=== PATIENT | male | born 1965 ===

== ENCOUNTER 2017-09-05 04:15 | Observation (INO) | payer OTHER ==
[~2017-09-05] VITALS: Ht 182.9 cm; Wt 93.9 kg
[2017-09-05] VITALS (14 sets, daily range): BP systolic 127–146; BP diastolic 76–96
[~2017-09-05 04:15] MED LIST: CYCL10TA29 PO; IBUP400T13 PO
[2017-09-05] MEDS ORDERED: NORMOSOL R SOLN(*) 1000 ML BAG 1,000 ML IV PRN (06:15)
[2017-09-05] MEDS ORDERED: LIDOCAINE/SOD BICARB 8.4% SYR ID ONE (06:15)
[2017-09-05] MEDS ORDERED: CLINDAMYCIN(*) 900 MG/NS 50 ML 50 ML IVPB ONE (06:15)
[2017-09-05] MEDS ORDERED: FAMOTIDINE 20 MG TAB PO ONE (06:15)
[2017-09-05] MEDS ORDERED: MIDAZOLAM 2 MG/2 ML VIAL IVP PRN (06:15)
[2017-09-05] MEDS ORDERED: THROMBIN (BOVINE) 20,000 UNIT VIAL ONE (06:20)
[2017-09-05] MEDS ORDERED: fentaNYL CITR 250 MCG/5 ML AMP ONE (07:20)
[2017-09-05] MEDS ORDERED: DEXAMETHASONE SOD PHOS 10MG/ML ONE (09:12)
[2017-09-05] MEDS ORDERED: ONDANSETRON 4 MG/2 ML VIAL ONE (09:12)
[2017-09-05] MEDS ORDERED: LIDOCAINE MPF 1% 5 ML VIAL ONE (09:12)
[2017-09-05] MEDS ORDERED: SUCCINYLCHOL CHL 200MG/10ML VL ONE (09:12)
[2017-09-05] MEDS ORDERED: PROPOFOL EMUL 10 MG/ML ONE (09:12)
[2017-09-05] MEDS ORDERED: fentaNYL CITR 100 MCG/2 ML AMP ONE ×2 (10:33→10:58)
[2017-09-05] MEDS ORDERED: FLUSH 10 ML SYR IVP PRN (10:55)
[2017-09-05] MEDS ORDERED: DIAZEPAM 5 MG TAB PO PRN (10:55)
[2017-09-05] MEDS ORDERED: ACETAMINOPHEN(*)1000 MG/100 ML 100 ML IVPB PRN (10:55)
[2017-09-05] MEDS ORDERED: HYDROmorphone HCL 2 MG/ML SDV IVP PRN (10:55)
[2017-09-05] MEDS ORDERED: ONDANSETRON 4 MG/2 ML VIAL IVP PRN (10:55)
[2017-09-05] MEDS ORDERED: diphenhydrAMINE 25 MG CAP PO PRN (10:55)
[2017-09-05] MEDS ORDERED: LR(*) 1000 ML BAG 1,000 ML IV PRN (10:55)
[2017-09-05] MEDS ORDERED: oxyCODONE HCL 5 MG CAP PO PRN (10:55)
[2017-09-05] MEDS ORDERED: MAGNESIUM HYDROXIDE* 30ML UDCP PO PRN (10:55)
[2017-09-05] MEDS ORDERED: BENZOCAINE/MENTHOL 1 EACH LOZG PO PRN (10:55)
[2017-09-05] MEDS ORDERED: BISACODYL 10 MG SUPP PR PRN (10:55)
[2017-09-05] MEDS ORDERED: ACETAMINOPHEN 500 MG TAB PO PRN (10:55)
[2017-09-05] MEDS: APAP/HYDROCODONE 325/5 TAB PO PRN ×3 (12:07→21:26)
--- NOTE | 2017-09-05 12:48 | Hospitalist Progress Note ---
Subjective Progress Notes Subjective Patient seen post-op. Reviewed PMHx (MILES on CPAP) and medications. At present, he reports doing well. No CP/SOB/N/V. Physical Exam Vital Signs Date Time Temp Pulse Resp B/P (MAP) Pulse Ox O2 Delivery O2 Flow Rate FiO2 09/05/17 12:30 100 140/95 (110) 88 09/05/17 11:54 Nasal Cannula 1.0 09/05/17 11:46 98.6 16 Intake and Output 09/06/17 07:00 Intake Total 2020 ml Balance 2020 ml Intake Oral 420 ml IV Total 1600 ml General Appearance: Alert, Awake Eyes: PERRLA ENT: Oropharynx Clear Neck: Other (C-collar in place) Cardiovascular: Regular Rate and Rhythm Respiratory: Clear to Auscultation Psych: Alert & Oriented X3 Assessment and Plan Problems: (1) MILES on CPAP Status: Chronic Assessment & Plan: Will continue his CPAP with 2L O2 bleed in. No changes from our standpoint. Exam Sepsis Risk: No Definite Risk SUNITHA TRACY MD Sep 05, 2017 12:48
[2017-09-05] MEDS: CLINDAMYCIN(*) 900 MG/NS 50 ML 50 ML IVPB SCH ×2 (14:58→23:09)
--- NOTE | 2017-09-05 17:18 | OPERATIVE REPORT 1 ---
EVENT DATE: September 05, 2017 SURGEON: Jose R Layne MD ANESTHESIOLOGIST: Rahat Gilman MD ANESTHESIA: General endotracheal anesthesia. CERTIFIED ORTHOPTIST: DOMENIC Guzman PREOPERATIVE DIAGNOSES 1. C5-C6 and C6-C7 cervical degenerative disk disease. 2. C6-C7 right-sided herniated nucleus pulposus. 3. Right upper extremity radiculopathy. POSTOPERATIVE DIAGNOSES 1. C5-C6 and C6-C7 cervical degenerative disk disease. 2. C6-C7 right-sided herniated nucleus pulposus. 3. Right upper extremity radiculopathy. PROCEDURE PERFORMED C5-C6 and C6-C7 anterior cervical discectomy and fusion. INTRAVENOUS FLUIDS 1000 mL ESTIMATED BLOOD LOSS 40 mL IMPLANTS A 6 mm size medium lordotic interbody titanium device from [employer], a 7 mm size medium lordotic interbody device from [employer], and 3.5 x 14 mm screws from [employer] times four. SPECIMENS None. DRAINS A 10-Prydeinig round Dave-Machado drain through the anterior neck. COMPLICATIONS None. DISPOSITION Post-anesthesia care unit. INDICATIONS FOR SURGERY Mr. Weaver is a 52-year-old male who presented to our clinic with the complaint of severe radiating right upper extremity pain, numbness, and tingling down the posterior triceps, dorsal forearm, and into the middle and index fingers of the right hand. He also had significant weakness primarily in his triceps. His physical examination was significant for a positive Spurling' s to the right which reproduced symptoms not only in a C7, but also in a C6 distribution. He had weakness in triceps and slight weakness in biceps. His imaging studies showed a large intraforaminal disk herniation at the C6-C7 level and severe right greater than left neural foraminal narrowing at C5-C6. Mr. Weaver failed nonsurgical treatment, including physical therapy, medications, activity modifications, etc., and secondary to ongoing symptoms, he was offered and elected to undergo two-level anterior cervical discectomy and fusion at C5-C6 and C6-C7. CONSENT Prior to surgery, I explained in detail to the patient the possible risks of surgery including the risks of nerve injury, persistent and/or worsening pain, spinal fluid leak, infection or meningitis, excessive bleeding, paralysis, , blindness, sexual dysfunction, retrograde ejaculation, blood vessel injury, injury to neighboring organs, need for further surgery, bowel and bladder dysfunction, instability, and autonomic nervous system dysfunction, as well as unforeseen medical and surgical complications. An understanding that in general spinal surgery is more predictive in improving extremity discomfort than axial spine pain and arresting the progression of spinal cord dysfunction rather than improving it was stressed. The risks of junctional degeneration, bone graft failure and morbidity, the differences in efficacy between local bone graft, autologous iliac crest bone graft, allograft, and synthetics, the FDA status of the instrumentation, possible need for further surgery, the risk of nonhealing, instrumentation failure, and chronic pain were also explained. DESCRIPTION OF PROCEDURE On the day of surgery, the patient was met in the preop hold area, and all questions were answered. The operative site was identified and marked by myself. The patient was then taken to the operating room, and after identification of the patient and the operative site, administration of antibiotics, and completion of anesthesia, the patient was prepped and draped in the supine position on a standard OR bed. During this time and the entire operation, care was taken to maintain appropriate perfusion pressures during anesthesia. All bony protuberances and soft tissues were well padded in the standard fashion. Preoperative antibiotics were administered according to the appropriate timing schedule. At the conclusion of the procedure, the sponge and needle counts were correct times two. Baseline neurophysiologic monitoring was obtained. Prior to the surgery, I discussed in detail with the patient the value of electrophysiologic monitoring. The patient understands that at times monitoring may cease to be informative due to the intrinsic disease of the spinal cord or peripheral nerve roots and not to any intraoperative event. If monitoring is unobtainable or lost in the absence of a correctable maneuver, the patient and family have given permission for continuation of the operative procedure understanding that the spinal cord and nerve roots cannot be monitored any further. The surgeon in this situation is now blinded to any adverse changes in neural function and unable to make any corrective maneuvers to alter this course. The patient understands that upon awakening from anesthesia, he may be paralyzed or experience worsening neurologic function. Throughout the procedure, there were no significant changes in neurophysiologic monitoring. Prior to surgery, the patient was counseled further as to the possible adverse consequences of or relating to anterior cervical surgery including swallowing difficulties with a possible need for tube feeding, recurrent and/or superior laryngeal nerve root injury, esophageal injury, voice changes, and hoarseness. A bolster was placed under the shoulders, and the shoulders were loosely secured at the side to afford access to the anterior cervical spine. There were no changes in neurophysiologic monitoring during positioning. A final timeout was undertaken by members of the operating team to confirm correct patient, correct levels, and correct surgery. A transverse incision was made on the left side of the anterior cervical spine. Sharp dissection was taken down through the skin and subcutaneous tissue down to the level of the platysma, which was divided. Blunt dissection was then taken medial to the sternocleidomastoid muscle. A finger was used to palpate the carotid pulse and to find the carotid artery. Blunt dissection was then utilized through the pretracheal fascia to the retropharyngeal space where the anterior cervical spine was palpated. An intraoperative x-ray was taken to confirm the appropriate level of exposure. Soft tissues including the longus colli muscles anterior to the spinal elements were elevated in a subperiosteal manner. Retractors were placed and distracted. We first addressed the C5-C6 level. At that level, a knife was used to incise the annulus fibrosus, and a pituitary rongeur was used to remove the outer annulus and nucleus pulposus at C5-C6. Remaining annular and nuclear material which was quite calcified was removed from ventral to dorsal across the disk space and out to the width of the uncovertebral joints bilaterally. Progressively smaller curettes were used to approach the posterior disk space. At this point, Cloward spreaders were placed with distraction applied to the disk space to allow access to the posterior aspect of the interbody space. There was no change in neurophysiologic monitoring. With a 3.0 curette, the posterior annulus was removed and the posterior longitudinal ligament identified. Uncovertebral resection was performed as necessary with the high- speed bur, followed by a 2 mm Kerrison punch across the medial aspect of the uncovertebral joints bilaterally. The posterior longitudinal ligament was removed by dissecting through its layers with a small curette and a nerve hook and removing it with 1 and 2 mm Kerrison rongeurs. The remaining posterior osteophytes were carefully removed with a curved curette and 1 mm Kerrison. Spinal cord and nerve roots were well decompressed at the completion of the decompression. The nerve hook was passed behind the vertebral bodies and out the neural foramina to confirm complete decompression of the disk space and the entry zone of the foramina. Complete hemostasis was obtained. After carefully burring down the endplates of the vertebral bodies to ensure some bleeding bone across both surfaces, a 6 mm rasp was chosen and tapped into the C5-C6 disk space. This was found to be adequate in terms of fit. We, therefore, chose a 6 mm lordotic titanium interbody device from [employer] and placed that in the interbody space at C5-C6. The awl was used to punch holes in the endplates through the integrated holes in the implant. Screws 14 mm x 3.5 mm were then placed through those two holes up into the C5 and down into the C6 vertebral bodies. Excellent fixation was noted. We then turned our attention to the C6-C7 level. As described above, complete discectomy was performed and the posterior longitudinal ligament taken down. Several large fragments of loose disk were found in the foramen at this level on the right. Again, we checked our decompression, passing a nerve hook behind the vertebral bodies to ensure no pressure on the cord and out the foramina bilaterally to ensure no persistent pressure on the exiting nerve roots. A 7 mm rasp was placed into the interbody space and found to have excellent fit. We , therefore, chose a 7 mm lordotic titanium interbody spacer from [employer], and this was packed with bone graft substitute. The device was inserted into the C6-C7 disk space and countersunk about a millimeter. Again, the endplates were punctured through the integrated holes in the device using the awl. Screws 14 mm x 3.5 mm were then placed up and down to the C6 and C7 vertebral bodies respectively. The wound was irrigated and hemostasis obtained. A lateral radiograph confirmed excellent positioning of the instrumentation. The wound was then closed in layers using interrupted sutures for the platysma, inverted interrupted sutures for the subcutaneous tissue, and then a running subcuticular skin stitch. A 10-Prydeinig round Dave-Machado drain was left deep to the platysma. Sponge and needle counts were correct times two. POSTOPERATIVE CARE PLAN The patient will remain in the hospital overnight. The drain will be pulled in the morning and the patient discharged home. He will follow up with me in two weeks' time for wound check and examination. WILLARD
--- NOTE | 2017-09-05 17:23 | RADIOLOGY IMAGING REPORT ---
FACILITY: [facility] PATIENT NAME: Ned Hernandez : 1965 MR: [id number] V: [id number] EXAM DATE: ORDERING PHYSICIAN: BENY KRUEGER TECHNOLOGIST: Location: [facility] Patient: Ned Hernandez : 1965 Visit/Account:[id number] Date of Sevice: 09/05/2017 CERVICAL SPINE 1 VIEW HISTORY: C5-6, C6-7 DISCECTOMY, C5-7 ACDF Additional history: None COMPARISON: None. FINDINGS: There are 3 intraoperative lateral cervical spine views. Patient is intubated. Initial images demonst rate a localization instrument directly anterior to the C5-6 disc. Degenerative disc disease is seen at this level. Subsequent image demonstrates anterior placement of a prosthetic device in the C5-C6 d isc. IMPRESSION: Intraoperative localization for lower cervical spine fusion per above Report Dictated By: Ferdinand Philip MD at 09/05/2017 5:15 PM Report E-Signed By: Ferdinand Philip MD at 09/05/2017 5:19 PM WSN:[id number]
[2017-09-05] MEDS: DOCUSATE SODIUM 100 MG CAP PO SCH (21:22)
[2017-09-06 00:20] VITALS: BP 121/85
[2017-09-06 03:16] VITALS: BP 129/80
[2017-09-06] MEDS: APAP/HYDROCODONE 325/5 TAB PO PRN (05:11)
--- NOTE | 2017-09-06 06:13 | Hospitalist Progress Note ---
Subjective Progress Notes Subjective He denies any problems this AM. Physical Exam Vital Signs Date Time Temp Pulse Resp B/P (MAP) Pulse Ox O2 Delivery O2 Flow Rate FiO2 09/06/17 03:16 99.9 87 16 129/80 (96) 91 Room Air 09/06/17 00:20 2.0 General Appearance: Alert, Awake Cardiovascular: Regular Rate and Rhythm Respiratory: Clear to Auscultation Assessment and Plan Problems: (1) MILES on CPAP Status: Chronic Assessment & Plan: Continue his CPAP with 2L O2 bleed in. No changes. Exam Sepsis Risk: No Definite Risk SUNITHA TRACY MD Sep 06, 2017 06:13
[2017-09-06] MEDS: CLINDAMYCIN(*) 900 MG/NS 50 ML 50 ML IVPB SCH (06:55)
[2017-09-06 07:03] VITALS: BP 121/81
[2017-09-06 08:03] VITALS: Ht 182.9 cm; Wt 93.9 kg
[2017-09-06] MEDS ORDERED: OXYC-865 PO (08:33)
[2017-09-06] MEDS ORDERED: DOCU240C84 PO (08:33)
[2017-09-06] MEDS: DOCUSATE SODIUM 100 MG CAP PO SCH (08:40)
== END 2017-09-06 08:35 | disposition home or self-care (01) ==
LOC: OR 04:15 → MED 11:40
PROVIDERS: ADMIT Orthopaedic Surgery; ATTEND Orthopaedic Surgery
DX: M50.122 Cervical disc disorder at C5-C6 level with radiculopathy (principal); M50.223 Other cervical disc displacement at C6-C7 level
CPT/HCPCS: 22551; 22552; 72020; G0378; J0330; J1100; J2001; J2405; J2704; J3010; J3490